=== PATIENT | male | born 1990 | race Caucasian/White ===

== ENCOUNTER 2019-10-01 07:39 | Emergency (ER) | payer OTHER ==
[~2019-10-01] VITALS: Ht 165.1 cm; Wt 68.2 kg
[2019-10-01] MEDS ORDERED: TETRACAINE HCL VISCOUS 0.5% 5 ML OPHTHALMIC SOLUTION OS ONE (08:00)
[2019-10-01] MEDS ORDERED: FLUORESCEIN SODIUM 1 MG STRIP OD ONE (08:00)
[2019-10-01] MEDS ORDERED: TETRACAINE HCL/PF 0.5% 4 ML OPHTHALMIC SOLUTION OS ONE (08:15)
[2019-10-01] MEDS ORDERED: OFLOXACIN 0.3% 5 ML OPHTHALMIC SOLUTION OS ONE (09:00)
[2019-10-01 09:59] VITALS: BP 116/82
== END 2019-10-01 10:36 | disposition home or self-care (01) ==
LOC: EMS 07:41
DX: S05.02XA Injury of conjunctiva and corneal abrasion without foreign body, left eye, initial encounter (principal); H00.016 Hordeolum externum left eye, unspecified eyelid; W20.8XXA Other cause of strike by thrown, projected or falling object, initial encounter; Y93.89 Activity, other specified; Y92.89 Other specified places as the place of occurrence of the external cause; Y99.8 Other external cause status